=== PATIENT | female | born 1950 | race African-American/Black ===

== ENCOUNTER 2021-12-03 23:43 | Inpatient (IN) | payer BC ==
[~2021-12-03] VITALS: Ht 180.3 cm; Wt 81.7 kg
[2021-12-04] MEDS ORDERED: SODIUM CHLORIDE 0.9% 1,000 ML IV ONE (00:15)
[2021-12-04 00:22] LABS: BASOPHILS % 0.6 % (0.0-2.0); HEMATOCRIT. 37.3 % (36.0-48.0); HEMOGLOBIN. 12.2 g/dL (12.0-16.0); LYMPHOCYTES % 57.2 % (20.0-50.0); MEAN CORPUSCULAR VOLUME 85.5 fL (81.0-99.0); MEAN PLATELET VOLUME 8.9 fl (7.4-10.4); MONOCYTES % 6.6 % (2.0-8.0); NEUTROPHILS % 33.6 % (40.0-76.0); PLATELET 189 x1000/uL (130-400); RED BLOOD CELL COUNT 4.37 mill/uL (4.2-5.4); RED CELL DISTRIBUTION WIDTH 14.5 % (11.6-14.6)
[2021-12-04 00:29] LABS: CHLORIDE 105 mEq/L (98-107)
[2021-12-04] MEDS ORDERED: IOHEXOL-300 100 ML BOTTLE ONE (01:13)
[2021-12-04] MEDS ORDERED: POTASSIUM CHLORIDE 20MEQ TABLET SR PO NR (01:15)
[2021-12-04] MEDS ORDERED: SODIUM CHLORIDE 0.9% 1000ML BAG (SEPSIS BOLUS) IV ONE (02:00)
[2021-12-04 03:25] LABS: CLARITY URINE CLEAR (CLEAR); COLOR URINE YELLOW (YELLOW); KETONES URINE NEGATIVE (NEGATIVE); LEUKOCYTE ESTERASE URINE 2+ (NEGATIVE); NITRITE URINE NEGATIVE (NEGATIVE); OCCULT BLOOD URINE 3+ (NEGATIVE); PROTEIN URINE TRACE (NEGATIVE); SPECIFIC GRAVITY URINE 1.023 (1.005-1.030)
[2021-12-04] MEDS ORDERED: CEFTRIAXONE 1 G PREMIX 50 ML IV NR (04:30)
[2021-12-04 10:00] VITALS: BP 141/62
[2021-12-04] MEDS ORDERED: LISI10TA26 MT (10:20)
[2021-12-04] MEDS ORDERED: LIP40 MT (10:20)
[2021-12-04] MEDS ORDERED: ONDANSETRON HCL 4MG/2ML INJ IV PRN (11:15)
[2021-12-04] MEDS ORDERED: ACETAMINOPHEN 325MG TABLET PO PRN (11:15)
[2021-12-04 11:53] VITALS: BP 135/86
[2021-12-04] MEDS: LISINOPRIL 10MG TABLET PO SCH (12:55)
[2021-12-04 16:00] VITALS: BP 130/79
[2021-12-04 19:30] LABS: HEMATOCRIT 41.1 % (36.0-48.0); HEMOGLOBIN 13.1 g/dL (12.0-16.0)
[2021-12-04 20:00] VITALS: BP 128/80
[2021-12-04] MEDS: ATORVASTATIN CALCIUM 40MG TABLET PO SCH (21:23)
[2021-12-04] MEDS: PANTOPRAZOLE SODIUM 40 MG/VIAL IV SCH (21:23)
[2021-12-05] VITALS: BP 99/64
[2021-12-05 03:13] LABS: *AMPHETAMINES SCREEN URINE NEGATIVE (NEGATIVE); *BARBITURATES SCREEN URINE NEGATIVE (NEGATIVE); *BENZODIAZEPINES SCREEN URINE NEGATIVE (NEGATIVE); *COCAINE SCREEN URINE NEGATIVE (NEGATIVE); CANNABINOID URINE SCREEN NEGATIVE (NEGATIVE); METHADONE URINE SCREEN NEGATIVE (NEGATIVE); OPIATES URINE SCREEN NEGATIVE (NEGATIVE); PHENCYCLIDINE URINE SCREEN NEGATIVE (NEGATIVE)
[2021-12-05 04:00] VITALS: BP 94/51
[2021-12-05 08:00] VITALS: BP 113/72
[2021-12-05] MEDS: PANTOPRAZOLE SODIUM 40 MG/VIAL IV SCH ×2 (09:05→21:00)
[2021-12-05] MEDS: LISINOPRIL 10MG TABLET PO SCH (09:05)
[2021-12-05] MEDS: ENOXAPARIN 40MG/0.4ML SYR SUBCUT SCH (11:09)
[2021-12-05] MEDS: ASPIRIN 81MG TABLET PO SCH (11:09)
[2021-12-05 12:00] VITALS: BP 106/76
[2021-12-05 12:27] LABS: HEMATOCRIT 36.3 % (36.0-48.0); HEMOGLOBIN 11.8 g/dL (12.0-16.0)
[2021-12-05 16:00] VITALS: BP 133/79
[2021-12-05 20:00] VITALS: BP 110/73
[2021-12-05] MEDS ORDERED: CEFTRIAXONE 1,000 MG in DEXTROSE 5% WATER 50 ML IV SCH (20:00)
[2021-12-05] MEDS: ATORVASTATIN CALCIUM 40MG TABLET PO SCH (22:29)
[2021-12-06] VITALS: BP 121/72
[2021-12-06 04:00] VITALS: BP 108/62
[2021-12-06 07:09] LABS: CHLORIDE 109 mEq/L (98-107)
[2021-12-06 07:14] LABS: TOTAL IRON BINDING CAPACITY 185 ug/dL (250-450)
[2021-12-06 07:23] LABS: BASOPHILS % 1.1 % (0.0-2.0); HEMATOCRIT. 35.6 % (36.0-48.0); HEMOGLOBIN. 11.8 g/dL (12.0-16.0); LYMPHOCYTES % 52.4 % (20.0-50.0); MEAN CORPUSCULAR HEMOGLOBIN 28.1 pg (28.0-32.0); MEAN CORPUSCULAR VOLUME 84.9 fL (81.0-99.0); MEAN PLATELET VOLUME 9.4 fl (7.4-10.4); MONOCYTES % 9.2 % (2.0-8.0); NEUTROPHILS % 34.3 % (40.0-76.0); PLATELET 182 x1000/uL (130-400); RED CELL DISTRIBUTION WIDTH 14.2 % (11.6-14.6)
[2021-12-06 07:56] LABS: FOLIC ACID (FOLATE) SERUM 7.4 ng/mL (>5.38)
[2021-12-06 08:00] VITALS: BP 151/64
[2021-12-06] MEDS: ASPIRIN 81MG TABLET PO SCH (09:19)
[2021-12-06] MEDS: LISINOPRIL 10MG TABLET PO SCH (09:20)
[2021-12-06] MEDS: ENOXAPARIN 40MG/0.4ML SYR SUBCUT SCH (09:20)
[2021-12-06] MEDS: PANTOPRAZOLE SODIUM 40 MG/VIAL IV SCH (09:20)
[2021-12-06 12:00] VITALS: BP 132/82
[2021-12-06 13:07] VITALS: BP 134/52
== END 2021-12-06 14:00 | disposition home or self-care (01) | DRG 74 ==
LOC: ER 23:43 → 7WST 12-04 04:22 → ENRESERV 12-04 08:50
PROVIDERS: ADMIT Internal Medicine; ATTEND Internal Medicine
DX: G90.8 Other disorders of autonomic nervous system (principal); E44.1 Mild protein-calorie malnutrition; N39.0 Urinary tract infection, site not specified; E78.00 Pure hypercholesterolemia, unspecified; E87.6 Hypokalemia; D64.9 Anemia, unspecified; I10 Essential (primary) hypertension; V47.5XXA Car driver injured in collision with fixed or stationary object in traffic accident, initial encounter
CPT/HCPCS: 36415; 70551; 71045; 71260; 72170; 74177; 80048; 80053; 80305; 81003; 82270; 82607; 82728; 82746; 82962; 83540; 83550; 84484; 85014; 85018; 85025; 85044; 86850; 86900; 93005; 93306; 93970; 99291; C9113; J0696; J1650; J7030; J7060; Q9967